=== PATIENT | female | born 1940 | race Caucasian/White ===

== ENCOUNTER 2018-08-03 13:26 | Day surgery (SDC) | payer MEDICARE ==
[~2018-08-03] VITALS: Ht 162.6 cm; Wt 63.6 kg
[2018-08-03 14:03] VITALS: BP 164/91
[2018-08-03 14:05] VITALS: BP 164/91
[2018-08-03 14:08] VITALS: BP 164/91
[2018-08-03] MEDS ORDERED: LACTATED RINGERS 1,000 ML IV SCH (14:10)
[2018-08-03] MEDS ORDERED: [UNRECOGNIZED DRUG - OTHER] PO (14:22)
[2018-08-03] MEDS ORDERED: BIOTIN PO (14:22)
[2018-08-03] MEDS ORDERED: VERAPAMIL PO (14:22)
[2018-08-03] MEDS ORDERED: CALCIUM PO (14:22)
[2018-08-03] MEDS ORDERED: VITAMIN D 1000 (14:22)
[2018-08-03] MEDS ORDERED: ASPIRIN PO (14:22)
[2018-08-03] MEDS ORDERED: LOVA20TA2 PO (14:22)
[2018-08-03] MEDS ORDERED: CEFAZOLIN 1,000 MG ONE (14:41)
[2018-08-03] MEDS ORDERED: NEOSTIGMINE 1 MG/ML, 10ML ONE (14:41)
[2018-08-03] MEDS ORDERED: ROCURONIUM 10MG/ML,5ML ONE (14:41)
[2018-08-03] MEDS ORDERED: DEXAMETHASONE 4 MG/ML, 1ML ONE (14:41)
[2018-08-03] MEDS ORDERED: GLYCOPYRROLATE 0.2MG/1ML, 5ML ONE (14:41)
[2018-08-03] MEDS ORDERED: PROPOFOL 10 MG/ML, 20ML ONE (14:41)
[2018-08-03] MEDS ORDERED: ONDANSETRON 2MG/ML, 2ML ONE (14:41)
[2018-08-03] MEDS ORDERED: FENTANYL PF 100 MCG/2ML ONE ×2 (14:42→15:46)
[2018-08-03 14:49] LABS: ALANINE AMINOTRANSFERASE 33 U/L (12-78); ALBUMIN 4.3 g/dL (3.4-5.0); ANION GAP 9 mmol/L (5-15); CALCIUM 9.4 mg/dL (8.5-10.1); CHLORIDE 108 mmol/L (98-107); CREATININE 0.71 mg/dL (0.55-1.02)
[2018-08-03 14:51] LABS: ALKALINE PHOSPHATASE 95 U/L (45-117); BILIRUBIN,TOTAL 0.9 mg/dL (0.2-1.0); TOTAL PROTEIN 7.7 g/dL (6.4-8.2)
[2018-08-03] MEDS ORDERED: OXYC5TAB2 PO (20:06)
[2018-08-03] MEDS ORDERED: ASPI-496 PO (20:07)
== END 2018-08-03 21:02 | disposition home or self-care (01) ==
LOC: OR 13:26 → 4NOR 17:57 → OR 21:02
PROVIDERS: ATTEND Orthopaedic Surgery
DX: S82.292K Other fracture of shaft of left tibia, subsequent encounter for closed fracture with nonunion (principal); I10 Essential (primary) hypertension; E78.5 Hyperlipidemia, unspecified; Z79.82 Long term (current) use of aspirin; X58.XXXD Exposure to other specified factors, subsequent encounter
CPT/HCPCS: 27720; 36415; 64445; 64447; 73600; 80053; 87015; 87070; 87075; 87102; 87116; 87176; 87205; 87206; C1713; C1762; C1769; J0690; J1100; J2405; J2704; J2710; J3010; J7120; 76001; G0378